=== PATIENT | male | born 1990 | race African-American/Black ===

== ENCOUNTER 2019-02-25 16:27 | Emergency (ER) | payer SELFPAY ==
[~2019-02-25] VITALS: Ht 172.7 cm; Wt 72.6 kg
[2019-02-25] MEDS ORDERED: NKM (16:34)
--- NOTE | 2019-02-25 16:35 | NUR ---
ED Nurse Note: PAtient walked into ED c/o pain on his penis for 1 week. patient reports that his partner was diagnosed with chlamydia, and wants to get checked. patient denies any discharge. rates pain 3/10
[2019-02-25] MEDS ORDERED: Azithromycin 250mg tab ORAL ONE (16:45)
--- NOTE | 2019-02-25 16:45 | Emergency Room Report ---
History of Present Illness General Chief Complaint: Male Urogenital Problems Source: Patient Present Illness HPI 28-year-old male with no significant past medical history here complaining of 1 week of penile pain denying discharge or dysuria. Patient reports that his partner was recently diagnosed with chlamydia. Patient is here today to be tested and treated. Rating the pain 3 out of 10 limited to cleanse of the penis denying any ulcers, or pruritus. Denies testicular pain. Denies nausea vomiting, fever chills, abdominal pain, all other associated symptoms. Allergies: Coded Allergies: No Known Allergies (Unverified , 02/25/19) Patient History Past Medical History: see triage record Past Surgical History: unable to obtain Pertinent Family History: none Immunizations: UTD Reviewed Nursing Documentation: PMH: Agreed; PSxH: Agreed Nursing Documentation-PMH Past Medical History: No Stated History Review of Systems All Other Systems: negative except mentioned in HPI Physical Exam Vital Signs Date Time Temp Pulse Resp B/P (MAP) Pulse Ox O2 Delivery O2 Flow Rate FiO2 02/25/19 16:30 98.4 98 18 153/99 (117) 97 Room Air Sp02 EP Interpretation: reviewed, normal General Appearance: normal inspection, well appearing, no apparent distress, alert, GCS 15 Head: normocephalic, atraumatic Eyes: bilateral eye normal inspection, bilateral eye PERRL ENT: normal ENT inspection, hearing grossly normal, normal pharynx Neck: normal inspection, full range of motion, supple, thyroid normal Respiratory: normal inspection, chest non-tender, lungs clear, normal breath sounds, no rhonchi, no wheezing Cardiovascular #1: normal inspection, no edema, no gallop, no murmur Gastrointestinal: normal inspection, non tender, soft Rectal: deferred Genitourinary: no CVA tenderness Neurologic: normal inspection, alert, oriented x3, responsive Psychiatric: normal inspection, judgement/insight normal, memory normal Skin: normal inspection, normal color, no rash, warm/dry Lymphatic: normal inspection, no adenopathy Medical Decision Making PA Attestation All my diagnosis and treatment plans were reviewed ad discussed with my supervising physician Dr. Gutierrez Diagnostic Impression: Primary Impression: Exposure to chlamydia ER Course 28-year-old male with no significant past medical history here complaining of 1 week of penile pain denying discharge or dysuria. Patient reports that his partner was recently diagnosed with chlamydia. Patient is here today to be tested and treated. Rating the pain 3 out of 10 limited to cleanse of the penis denying any ulcers, or pruritus. Denies testicular pain. Denies nausea vomiting, fever chills, abdominal pain, all other associated symptoms. Ddx considered but are not limited to: vaginitis, yeast infection, BV, chlamydia , Gohnorrea, syphylis, HIV, herpes 1 or 2 Vital signs: are WNL, pt. is afebrile H&PE are most consistent with : Exposure to chlamydia ORDERS: UA, GC and chlamydia, azithromycin ED INTERVENTIONS: Azithromycin DISCHARGE: At this time pt. is stable for d/c to home. Will provide printed patient care instructions, and any necessary prescriptions. Care plan and follow up instructions have been discussed with the patient prior to discharge. Last Vital Signs Date Time Temp Pulse Resp B/P (MAP) Pulse Ox O2 Delivery O2 Flow Rate FiO2 02/25/19 16:30 98.4 98 18 153/99 (117) 97 Room Air Disposition: HOME, SELF-CARE Condition: Stable Patient Instructions: Chlamydia, Male Additional Instructions: Use condoms for 7 to 10 days have test repeated in 4 to 6 weeks Elle Ware Feb 25, 2019 16:45
--- NOTE | 2019-02-25 16:50 | NUR ---
ED Nurse Note: UA sent to lab
--- NOTE | 2019-02-25 16:54 | NUR ---
ER DISCHARGE NOTE: Patient is cleared to be discharged per NATHAN MIJARES pt is aox4, on room air, with stable vital signs. pt was given dc and prescription instructions, pt was able to verbalize understanding, pt id band and removed without complications. pt is able to ambulate with steady gait. pt took all belongings.
[2019-02-25 16:55] VITALS: BP 151/92
[2019-02-25 16:56] VITALS: BP 151/92
[2019-02-25 17:00] LABS: APPEARANCE,URINE CLEAR; BILIRUBIN, URINE NEGATIVE (NEGATIVE); COLOR,URINE YELLOW; GLUCOSE, URINE (UA) NEGATIVE (NEGATIVE); KETONES,URINE NEGATIVE (NEGATIVE); LEUKOCYTE ESTERASE ,URINE NEGATIVE (NEGATIVE); NITRITE,URINE NEGATIVE (NEGATIVE); PH,URINE 8 (4.5-8.0); PROTEIN,URINE 2+ (NEGATIVE); UROBILINOGEN,URINE 1 MG/DL (0.0-1.0)
== END 2019-02-25 16:56 | disposition home or self-care (01) ==
LOC: EMR 16:46
DX: N48.89 Other specified disorders of penis (principal); Z20.2 Contact with and (suspected) exposure to infections with a predominantly sexual mode of transmission
CPT/HCPCS: 81001; 87491; 87590; 99283